=== PATIENT | male | born 1985 | race Caucasian/White ===

== ENCOUNTER 2024-02-15 10:53 | Emergency (ER) | payer OTHER, SELFPAY ==
[2024-02-15 11:01] VITALS: BP 130/90; PULSE 98; TEMP 36.6; O2SAT 97; BMI 32.6
--- NOTE | 2024-02-15 11:06 | XR_ITS ---
The [address] [address] Patient Name: ESTEPHANIA BLACKMON MRN: [id number] date: 1985 Sex: M Assigned Patient Location: ER Current Patient Location: ER Accession/Order Number: [id number] Exam Date: 02/15/2024 11:10 Report Date: 02/15/2024 11:25 At the request of: HEATHER MÁRQUEZ Procedure: XR hand LT min 3V PROCEDURE: XR hand LT min 3V HISTORY: Smashed fourth fingertip COMPARISON: None. FINDINGS: BONES:No fracture, acute abnormality, or significant arthropathy. SOFT TISSUES:No visible soft tissue swelling. EFFUSION:None visible. OTHER: Negative. XR/XR hand LT min 3V IMPRESSION: 1. No acute bone abnormality. Electronically authenticated by: ADI MAST Date: 02/15/2024 11:25
--- NOTE | 2024-02-15 11:07 | ED_ITS ---
HPI HPI - Extremity Injury (Upper) General Chief Complaint: Extremity Injury, Upper Stated Complaint: UPPER EXTREMITY INJURY Time Seen by Provider: 02/15/24 11:04 Source: patient Mode of arrival: walk-in Limitations: no limitations History of Present Illness HPI narrative: 32-year-old male presents for pain to his left fourth finger. It was smashed under 100 pounds of weight about 30 minutes ago. The other fingers were unaffected. The pain is moderate and continuous and he had a tetanus shot about 3 years ago. Related Data Previous Rx's ?Medication ?Instructions ?Recorded cephalexin 500 mg capsule 500 mg PO TID 5 days #15 caps 02/15/24 Allergies Allergy/AdvReac Type Severity Reaction Status Date / Time No Known Drug Allergies Allergy Verified 02/15/24 11:01 Opioid HPI Opioid Management Most Recent Pain and Opioid Data: No Data to Display Review of Systems ROS Narrative A ten point review of systems is negative except as noted above. Exam Narrative Exam Narrative: Nurses note and vital signs reviewed and patient is not hypoxic. General: The patient appears well and in no apparent distress. Patient is resting comfortably on cart. Skin: Warm, dry, no pallor noted. There is no rash noted. Head: Normocephalic, atraumatic Eye: Normal conjunctiva, no drainage Ears, Nose, Mouth, and Throat: oral mucosa is moist. Nares patent. Cardiovascular: Regular Rate and Rhythm Respiratory: Patient is in no distress, no accessory muscle use Back: non-tender GI: Soft and nontender Musculoskeletal: The left fourth finger is examined. He has a transverse break in the fingernail. He has some bruising and swelling. No active bleeding. No laceration on the finger pad. Neurological: Alert and oriented Psychiatric: Cooperative Constitutional Vital Signs, click to edit/add: Last Vital Signs Temp 97.8 F 02/15/24 11:01 Pulse 98 H 02/15/24 11:01 Resp 18 02/15/24 11:01 BP 130/90 02/15/24 11:01 Pulse Ox 97 02/15/24 11:01 O2 Del Method Room Air 02/15/24 11:01 Course Vital Signs Vital signs: Vital Signs Temperature 97.8 F 02/15/24 11:01 Pulse Rate 98 H 02/15/24 11:01 Respiratory Rate 18 02/15/24 11:01 Blood Pressure 130/90 02/15/24 11:01 Pulse Oximetry 97 02/15/24 11:01 Oxygen Delivery Method Room Air 02/15/24 11:01 Temperature 97.8 F 02/15/24 11:01 Pulse Rate 98 H 02/15/24 11:01 Respiratory Rate 18 02/15/24 11:01 Blood Pressure 130/90 02/15/24 11:01 Pulse Oximetry 97 02/15/24 11:01 Oxygen Delivery Method Room Air 02/15/24 11:01 MDM - Extremity Injury (Upper) MDM Narrative Medical decision making narrative: X-ray shows no fracture. The wound was cleansed and dressed and he was offered pain medication. He does not feel he needs any and he was recommended to take ibuprofen. Treatment diagnosis and follow-up were discussed with the patient. He is placed on prophylactic Keflex. I do not feel that nail removal is indicated at this point. Differential Diagnosis Differential diagnosis: Likely other (Contusion, fracture) Imaging Data Hand x-ray: Radiologist's impression: ITS Impressions Hand X-Ray 02/15/24 11:06 IMPRESSION: 1. No acute bone abnormality. Electronically authenticated by: ADI MAST Date: 02/15/2024 11:25 Discharge Plan Discharge Stand Alone Forms: Portal Instructions Chief Complaint: Extremity Injury, Upper Clinical Impression: Contusion of finger Patient Disposition: Home, Self-Care Time of Disposition Decision: 11:41 Condition: Good Mode of Transportation: Private Vehicle Prescriptions / Home Meds: New cephalexin 500 mg capsule 500 mg PO TID 5 Days Qty: 15 0RF Print Language: Kazakh Instructions: Contusion in Adults (ED) Referrals: Physician,Non-Staff, MD [Primary Care Provider] - 1 week
== END 2024-02-15 11:52 | disposition home or self-care (01) ==
PROVIDERS: Emergency Provider Emergency Medicine
DX: S60.042A Contusion of left ring finger without damage to nail, initial encounter (principal); W23.0XXA Caught, crushed, jammed, or pinched between moving objects, initial encounter
CPT/HCPCS: 73130; 99283

== ENCOUNTER 2025-01-19 18:07 | Emergency (ER) | payer SELFPAY ==
[2025-01-19 18:27] VITALS: BP 138/95; PULSE 94; TEMP 37.2; O2SAT 97; BMI 34.5
[2025-01-19] MEDS: IBUPROFEN 600 MG TABLET PO (19:26)
[2025-01-19] MEDS: DOXYCYCLINE MONOHYDRATE 100 MG CAPSULE PO (19:27)
--- NOTE | 2025-01-19 19:33 | ED_ITS ---
HPI - Animal Bite General Chief Complaint: Animal Bite Stated Complaint: TICK BITE Time Seen by Provider: 01/19/25 18:38 Mode of arrival: walk-in History of Present Illness HPI narrative: This 39-year-old male with no significant medical history presents for evalu ation after he was bit by a tick last Sunday. The patient states they were camping and on Sunday he noticed a tick on his chest wall. He pulled it off completely including the head. Since that time he has developed some redness and swelling in the chest wall area. He has an area lateral to his nipple where he was bit. He was seen at urgent care and a red line was drawn around the erythematous area that had developed at that time. Since that time this area has extended. The patient was placed on Keflex. He is not having any fevers or chills. He does not have any body aches. Related Data Previous Rx's ?Medication ?Instructions ?Recorded cephalexin 500 mg capsule 500 mg PO TID 5 days #15 caps 02/15/24 Allergies Allergy/AdvReac Type Severity Reaction Status Date / Time No Known Drug Allergies Allergy Verified 01/19/25 18:27 Review of Systems ROS Status of ROS 10 or more systems reviewed and unremark able except as noted in history and below PFSH PFSH Social History Little interest or pleasure in doing things: not at all Feeling down, depressed, or hopeless: not at all Exam Narrative Exam Narrative: Vital signs and Nursing Notes reviewed: Patient is afebrile with a normal pulse, blood pressure is elevated 138/95, he is not hypoxic with pulse ox of 97% on room air General: Awake, alert, oriented, no acute distress, lying comfortably on the stretcher HEENT: Normocephalic atraumatic, mucous membranes are moist and pink, eyes are clear, normal conjunctiva, vision is grossly intact Neck: Supple, no meningeal signs Chest: Lungs are clear to auscultation with good air entry, there is no wheezing rhonchi or rales appreciated no accessory muscle use, patient is speaking in complete sentences-no chest wall tenderness to palpation CVS: Regular rate and rhythm S1-S2, no murmurs rubs or gallops, pulses are brisk and equal bilaterally ABD: Soft, nondistended, nontender, no rebound guarding or rigidity, bowel sounds are normal, no pulsatile masses appreciated Extremities: Moving all extremities Skin: Lateral to the left nipple is an area that is somewhat blackened where the patient removed a tick 4 days ago, around this area is an area of redness consistent with a local cellulitis. There is no fluctuance or drainage noted. It is mildly tender. The remainder of the patient's skin exam is normal. Neuro: No focal deficits Constitutional Vital Signs, click to edit/add: Last Vital Signs Temp 98.9 F 01/19/25 18:27 Pulse 94 H 01/19/25 18:27 Resp 16 01/19/25 18:27 BP 138/95 H 01/19/25 18:27 Pulse Ox 97 01/19/25 18:27 O2 Del Method Room Air 01/19/25 18:27 Course Vital Signs Vital signs: Vital Signs Temperature 98.9 F 01/19/25 18:27 Pulse Rate 94 H 01/19/25 18:27 Respiratory Rate 16 01/19/25 18:27 Blood Pressure 138/95 H 01/19/25 18:27 Pulse Oximetry 97 01/19/25 18:27 Oxygen Delivery Method Room Air 01/19/25 18:27 Temperature 98.9 F 01/19/25 18:27 Pulse Rate 94 H 01/19/25 18:27 Respiratory Rate 16 01/19/25 18:27 Blood Pressure 138/95 H 01/19/25 18:27 Pulse Oximetry 97 01/19/25 18:27 Oxygen Delivery Method Room Air 01/19/25 18:27 MDM - Animal Bite MDM Narrative Medical decision making narrative: This 39-year-old male presents for evaluation of redness swelling and some pain in his left anterior chest wall. He was bit by a tick last Sunday. He states he remove the entire tick including the head. Afterwards he started developing some redness in this area and was seen at urgent care and placed on Keflex. An area was drawn around the area of redness at urgent care and he presents e mergency department for further evaluation. There is a local area of cellulitis on his anterior chest wall. He has no signs of sepsis or toxicity. He has not had a fever. He has no bodyaches. He has no nausea or vomiting. He was medicated emergency department with doxycycline which is more appropriate for a tick bite and ibuprofen and will be discharged home with a 10-day course of doxycycline and ibuprofen. I encouraged him to use warm compresses to this area and return to the emergency department for worsening symptoms, headache, neck pain, fever or chills body aches chest pain shortness of breath or any concerns. The patient and his are in agreement with this plan. Discharge Plan Discharge Chief Complaint: Animal Bite Clinical Impression: Tick bite of chest wall Patient Disposition: Home, Self-Care Time of Disposition Decision: 19:05 Condition: Good Prescriptions / Home Meds: No Action cephalexin 500 mg capsule 500 mg PO TID 5 Days Qty: 15 0RF Print Language: [place] Citizen Instructions: Tick Bite (ED) Additional Instructions: Use warm compresses to chest wall. Return to the ED for fever, worsening symptoms, body aches or any complaints. Referrals: Physician,Non-Staff, MD [Primary Care Provider] - 1 week
== END 2025-01-19 19:39 | disposition home or self-care (01) ==
PROVIDERS: Emergency Provider Emergency Medicine
DX: S20.369A Insect bite (nonvenomous) of unspecified front wall of thorax, initial encounter (principal); L03.313 Cellulitis of chest wall; W57.XXXA Bitten or stung by nonvenomous insect and other nonvenomous arthropods, initial encounter
CPT/HCPCS: 99283

== ENCOUNTER 2025-06-01 20:38 | Emergency (ER) | payer OTHER, SELFPAY ==
[2025-06-01 20:48] VITALS: BP 128/86; PULSE 66; TEMP 36.8; O2SAT 98; BMI 32.6
--- OUTSIDE RECORDS SUMMARY | 2025-06-01 20:50 | XMS_ITS | CCD ---
Author Organization [facility] Inform ion Partnership [facility] Care Team Providers Care Data Operations Manager Name Role Phone REQUEST, NONE LISTED Primary Care Unavailable MAEGAN GOMEZ Admitting Unavailable MAEGAN GOMEZ Attending Unavailable MAEGAN GOMEZ Consulting Unavailable MARIO ARMANDO Consulting Unavailable Camilo HEARN Attending Unavailable Medications Current Medications Medication Drug Class(es) Dates Sig (Normalized) Sig (Original) cephalexin 500 mg oral capsule (2 sources) Cephalosporin Antibacterial Start: 01-18-2025 End: 01-18-2025 take 1 capsule by mouth four times daily Cephalexin 500 mg capsule Active 500 MG PO Four times daily 40 10 January 18, 2025 12:00am Completed/Discontinued Medications Medication Drug Class(es) Dates Sig (Normalized) Sig (Original) methylPREDNISolone 4 mg oral tablet (1 source) Corticosteroid Start: End: take 1 tablet by mouth once Methylprednisolone (Medrol (Terrence)) 4 mg tablets,dose pack Discontinued 0 PO per package directions September 11, 2024 1:00am January 18, 2025 2:16pm PO PER PKG DIR for 6 days Problems Problem Classification Problem Date Documented Da te Episodic/Chronic Acute bronchitis (1 source) Acute viral bronchitis; Translations: [Acute bronchitis due to other specified organisms] 09-11-2024 Episodic E Codes: Natural/environment (2 sources) Infection of tick bite; Translations: [Bitten or stung by nonvenomous insect and other nonvenomous arthropods, initial encounter] 01-18-2025 Episodic Other lower respiratory disease (3 sources) Cough; Translations: [COUGH] Onset: 08-07-2019 Episodic Pneumonia (except that caused by tuberculosis or sexually transmitted disease) (1 source) Pneumonia, unspecified organism; Translations: [PNEUMONIA UNSPECIFIED ORGANISM] Onset: 08-11-2019 Episodic Skin and subcutaneous tissue infections (2 sources) Cellulitis; Translations: [Cellulitis, unspecified] 01-18-2025 Episodic Substance-related disorders (2 sources) Nicotine dependence, cigarettes, uncomplicated; Translations: [Cannabis use, unspecified, uncomplicated] Onset: 08-11-2019 Chronic Results Test Name Value Interpretation Reference Range Facil ity XR CHEST 2 Von 08-07-2019 XR CHEST 2 V Patient: DAWSON BLACKMON Exam Date: 08/07/2019 : 1985 Gender:M Ordering : DR MAEGAN GOMEZ D.O. Admission #: [id number] Family : Order #: [id number] CLICK HERE TO VIEW EXAM RADIOLOGY REPORT PROCEDURE: RADIOGRAPH CHEST 2 VIEWS COMPARISON: None. INDICATIONS: Acute cough and anterior tightness in chest FINDINGS: LUNGS: Scattered tiny areas of minimal haziness. VASCULATURE: No increased pulmonary vasculature. PLEURA: No pneumothorax, effusion, or pleural thickening. CARDIAC: No cardiomegaly or cardiac silhouette abnormality. MEDIASTINUM: No visible mass or adenopathy. BONES: No fracture or visible bone lesion. OTHER: Negative. CONCLUSION: 1. Suspect trace amount of multifocal infiltrates/pneumonia, most notable within the right lung base. Dictated by: Mario Armando M.D. on 08/07/2019 at 14:41 Approved by: Mario Armando M.D. on 08/07/2019 at 14:44 Normal [facility] Vital Signs Date Time Vital Sign Value Performing Clinician Faci [facility] 01-18-2025 14:15-0400 Body height 162.56 cm [facility] 01-18-2025 14:15-0400 Body mass index (BMI) [Ratio] 34.9 kg/m2 [facility] 01-18-2025 14:15-0400 Body temperature 98.3 [degF] [facility] 01-18-2025 14:15-0400 Body weight 92.19 kg [facility] 01-18-2025 14:15-0400 Diastolic blood pressure 73 mm[Hg] [facility] 01-18-2025 14:15-0400 Heart rate 78 /min [facility] 01-18-2025 14:15-0400 Respiratory rate 18 /min [facility] 01-18-2025 14:15-0400 SaO2% (BldA) [Mass fraction] 97 % [facility] 01-18-2025 14:15-0400 Systolic blood pressure 115 mm[Hg] [facility] Encounters Encounter Date Encounter Type Care Provider Facility Start: 01-18-2025 End: 01-18-2025 ambulatory [facility] Work Phone: Start: 01-18-2025 End: 01-18-2025 Patient encounter procedure [facility] Work Phone: Start: 04-04-2024 End: 04-04-2024 ambulatory [facility] Facility:[facility] Start: 08-07-2019 End: 08-07-2019 Patient encounter procedure NONE LISTED REQUEST Facility: Payers Date Payer Category Payer Unknown [id number] 1958 Self-pay [id number] Social History Date Type Detail Facility Start: 01-18-2025 Tobacco smoking stat [facility] Smoker (finding) [facility] Start: 01-18-2025 Sex Male (finding) [facility] Start: 1985 Sex Assigned At Male F [facility] Evaluation note Note Date & Type Note Facility Evaluation note Diagnosis Onset Date Resolution Cellulitis acute January 18 2:07pm Infected tick bite acute January 18, 2025 2:07pm [facility] Work Phone: Summary Purpose Family History No Family History Records FoundNo Family History Records Found Advance Directives Advance Directive Response Recorded Date/ Time Advance Directives No August 10:12am Chief Complaint and Reason for Visit Chief Complaint Admit Date Tick bite on chest January 18, 2025 2:0 7pm Reason for Visit Admit Date Cellulitis January 18, 2025 2:0 7pm Infected tick bite January 18, 2025 2:0 7pm Additional Source Comments (unrecognized sect ion and content) No Status Records FoundNo Status Records Found INFORMATION SOURCE (unrecogn ized section and content) DATE CREATED AUTHOR 08/11/2019 [facility] DATE CREATED AUTHOR AUTHOR'S CESAR ATION 04/10/2024 [facility] Care Teams (unrecognized sec tion and content) Team Status: Active Member Role Status Dates NON STAFF Primary Care Provider Active Team Status: Inactive Member Role Status Dates NON STAFF Primary Care Provider Active Start: January 18, 2025 End: January 18, 2025 Columba Martines APRN Attending Provider Active S tart: January 18, 2025 End: January 18, 2025 Goals (unrecognized section and content) Goals may be documented in a n alternate section FOR RECORDS PERTAINING TO PATIENTS WHO ARE OR HAVE BEEN ENROLLED IN A CHEMICAL DEPENDENCY/SUBSTANCEABUSE PROGRAM, SOME INFORMATION MAY BE OMITTED. This clinical summary was aggregated from multiple sources. Caution should be exercised in using it in the provision of clinical care. This summary normalizes information from multiple sources, and as a consequence, information in this document may materially change the coding, format and clinical context of patient data. In addition, data may be omitted in some cases. CLINICAL DECISIONS SHOULD BE BASED ON THE PRIMARY CLINICAL RECORDS. [employer] provides no warranty or guarantee of the accuracy or completeness of information in this document.
--- NOTE | 2025-06-01 21:03 | XR_ITS ---
The [address] [address] Patient Name: ESTEPHANIA BLACKMON MRN: [id number] date: 1985 Sex: M Assigned Patient Location: ED.MAIN Current Patient Location: Accession/Order Number: [id number] Exam Date: 06/01/2025 21:32 Report Date: 06/01/2025 22:40 At the request of: RORO HURST Procedure: XR hand RT min 3V 3 views right hand INDICATION: Dogbite second and third digit FINDINGS: No fracture or dislocation. Soft tissues unremarkable. No soft tissue gas. No radiopaque foreign body. XR/XR hand RT min 3V IMPRESSION: Negative acute osseous abnormality. Impression dictated by: Al Ocampo M.D. 06/01/2025 10:40 PM Dictation Location: [place] [address] Electronically authenticated by: [id number] Y Date: 06/01/2025 22:40
--- NOTE | 2025-06-01 22:01 | ED.GENADUL1 ---
HPI HPI - General Adult General Chief complaint: Animal Bite Stated complaint: DOG BITE Time Seen by Provider: 06/01/25 20:54 Source: patient Mode of arrival: walk-in Limitations: no limitations History of Present Illness HPI narrative: Patient is a 39-year-old male that presents to the emergency department with complaints of dog bite to his right hand. The bite happened just prior to arrival by his neighbors Jef Hill. He has a wound to the dorsal aspect of the right hand over the 2nd and 3rd MCP joints. Patient is not up-to-date on his tetanus. Related Data Previous Rx's ?Medication ?Instructions ?Recorded amoxicillin 875 mg-potassium 1 tab PO Q12H #14 tabs 06/01/25 clavulanate 125 mg tablet Allergies Allergy/AdvReac Type Severity Reaction Status Date / Time No Known Drug Allergies Allergy Verified 06/01/25 20:47 Review of Systems ROS Status of ROS 10 or more systems reviewed and unremarkable except as noted in history and below PFSH PFSH Social History Little interest or pleasure in doing things: not at all Feeling down, depressed, or hopeless: not at all Exam Narrative Exam Narrative: General: No distress, age-appropriate Skin: Warm, dry, no pallor. No rash. There is a stellate wound on the dorsal aspect of the right hand about 1 x 1 cm over the 2nd?3rd MCP joints. There is a 0.5 cm area of skin missing, the other half has a skin flap. Wound explored and no tendons are visible. Head: Normocephalic, atraumatic. Neck: Supple, non-tender. Eye: Pupils are equal, round and EOMI. No scleral icterus. Cardiovascular: Regular Rate and Rhythm without murmur, gallop or rub. Respiratory: No accessory muscle use or respiratory distress. Back: No midline thoracic or lumbar vertebral tenderness. Musculoskeletal: Full ROM of all extremities, no calf or popliteal tenderness. Patient able to make a full fist right hand and extend all fingers actively. Less than 2-second capillary refill to all fingers and thumb. Neurological: A&O x4. No cranial nerve dysfunction observed. No truncal ataxia. Moves all extremities. Sensation intact. Psychiatric: Cooperative and interactive. Normal mood and affect. Constitutional Vital Signs, click to edit/add: Last Vital Signs Temp 98.2 F 06/01/25 20:48 Pulse 66 06/01/25 20:48 Resp 18 06/01/25 20:48 BP 128/86 06/01/25 20:48 Pulse Ox 98 06/01/25 20:48 O2 Del Method Room Air 06/01/25 20:48 Course Vital Signs Vital signs: Vital Signs Temperature 98.2 F 06/01/25 20:48 Pulse Rate 66 06/01/25 20:48 Respiratory Rate 18 06/01/25 20:48 Blood Pressure 128/86 06/01/25 20:48 Pulse Oximetry 98 06/01/25 20:48 Oxygen Delivery Method Room Air 06/01/25 20:48 Temperature 98.2 F 06/01/25 20:48 Pulse Rate 66 06/01/25 20:48 Respiratory Rate 18 06/01/25 20:48 Blood Pressure 128/86 06/01/25 20:48 Pulse Oximetry 98 06/01/25 20:48 Oxygen Delivery Method Room Air 06/01/25 20:48 Medical Decision Making MDM Narrative Medical decision making narrative: 39-year-old male with dog bite to right hand by his neighbors dog, Jef Hill, prior to arrival. He is not up-to-date on his tetanus. Boostrix ordered. I will give him his first dose of Augmentin here in the ED. X-ray right hand ordered and negative for metacarpal fracture or foreign body. No tendon exposure. Flexion and extension of the fingers 2?3 were intact before and after sutures placed. 4 sutures were placed on the flap of skin available. The rest of the wound will be left to heal by secondary intention. Finger splint placed with MCP in flexion. We did discuss multiple times if patient should remove splint and to use his hand is normal, as he does work on removed, he risks the sutures ripping out. He voices understanding. I did give him a work note to be off for a week. We did discuss wound care, washing daily with soap and water and watching for signs/symptoms of infection. For the patient's dog bite to his right dominant hand I did place 4 sutures in the remaining skin available to repair, splint and his 2nd?3rd digit and MCP flexion, and will discharge with 7 days of Augmentin. He does not have a PCP so plan will be to have him return here for wound check and suture removal in 7 to 10 days. Differential Diagnosis Differential Diagnosis: Dog bite, metacarpal fracture Discharge Plan Discharge Chief Complaint: Animal Bite Clinical Impression: Dog bite Patient Disposition: Home, Self-Care Time of Disposition Decision: 21:57 Condition: Good Mode of Transportation: Private Vehicle Prescriptions / Home Meds: New amoxicillin-pot clavulanate 875-125 mg tablet 1 tab PO Q12H Qty: 14 0RF Print Language: Vincentian Instructions: Animal Bite (ED), Care For Your Stitches (DC) Additional Instructions: Monitor wound for signs and symptoms of infection to include fever, surrounding redness, increasing swelling, foul-smelling drainage/shannon/brown drainage. Return to the emergency department to have stitches removed in 7 to 10 days. Maintain splint during this time to help promote healing. Limit use of the index and middle finger to also help promote healing. Return to the emergency department if there are any concerns for infection or any new or worsening symptoms. Referrals: Physician,Non-Staff, MD [Primary Care Provider] - 1 week Discharge Date/Time: 06/01/25 22:17 Procedures ED Laceration Laceration Laceration 1: Site: hand Side (if applicable): right Size (cm): 1 Description: stellate Depth: simple, single layer Anesthetic used: lidocaine 1% Anesthesia technique: local infiltration Amount (ml): 2 Pre-repair: wound explored, irrigated extensively and wound margins revised Skin layer closed with: other (Prolene) Size (cm): 3-0 Number of sutures: 4 Technique: simple, interrupted
[2025-06-01] MEDS: AMOXICILLIN/POT CLAV 875-125 MG TABLET 1 TAB PO (22:15)
[2025-06-01] MEDS: LIDOCAINE HCL 1% 100 MG/10 ML MDV INJ (22:15)
[2025-06-01] MEDS: DIPHTH,PERTUSS(ACELL),TET VAC 0.5 ML SYRINGE IM (22:15)
--- NOTE | 2025-06-01 22:18 | PC.NURSE ---
i gave this patient verbal and written discharge orders along with 1 e-script and this patient voices yes to understanding these. at time of discharge this patient voices no concerns, needs and shows no signs of distress
== END 2025-06-01 22:17 | disposition home or self-care (01) ==
PROVIDERS: Emergency Provider Internal Medicine
DX: S61.451A Open bite of right hand, initial encounter (principal); W54.0XXA Bitten by dog, initial encounter; Z23 Encounter for immunization
CPT/HCPCS: 12001; 73130; 90471; 90715; 99284